=== PATIENT | male | born 1970 | race Caucasian/White ===

== ENCOUNTER 2020-09-20 18:17 | Emergency (ER) | payer OTHER ==
[~2020-09-20] VITALS: Ht 170.2 cm; Wt 81.7 kg
[2020-09-20 19:06] LABS: BASOPHILS 0.7 % (0.0-2.0); HEMOGLOBIN 14.6 gm/dL (14.0-18.0); LYMPHOCYTES 16.8 % (24.0-44.0); MCH 28.2 pg (26.0-34.0); MCHC 33.9 g/dL (28.0-37.0); MCV 83.4 fL (80.0-100.0); MONOCYTES 9.1 % (1.0-8.0); PLATELET COUNT 229 thou/uL (150-400); POLYS 72.4 % (36.0-66.0); RBC 5.16 mil/uL (4.50-6.00); RDW 13.7 % (10.5-14.5); WBC 8.3 thou/uL (4.0-11.0)
[2020-09-20 19:15] LABS: ANION GAP 6 mmol/L (7-16); BUN 16 mg/dL (7-18); CALCIUM 8.7 mg/dL (8.5-10.1); CHLORIDE 103 mmol/L (98-107); CO2 29 mmol/L (21-32); CREATININE 1.2 mg/dL (0.7-1.3); GLUCOSE 93 mg/dL (74-106); POTASSIUM 3.8 mmol/L (3.5-5.1); SODIUM 138 mmol/L (136-145)
[2020-09-20 19:25] LABS: ALBUMIN 3.7 g/dL (3.4-5.0); SGOT 31 U/L (15-37); SGPT 44 U/L (30-65); TOTAL BILIRUBIN 0.4 mg/dL (0.2-1.0); TOTAL PROTEIN 7.5 g/dL (6.4-8.2); TROPONIN-I <0.06 ng/mL (<0.06)
[2020-09-20 20:44] VITALS: BP 149/87
--- NOTE | 2020-09-21 06:56 | EKG ---
[place] [address] [facility] [place] 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
== END 2020-09-20 21:10 ==
LOC: ER 18:17
PROVIDERS: Physician Assistant
DX: R07.9 Chest pain, unspecified (principal); F17.210 Nicotine dependence, cigarettes, uncomplicated

== ENCOUNTER 2021-04-04 20:52 | Emergency (ER) | payer OTHER ==
[~2021-04-04] VITALS: Ht 170.2 cm; Wt 86.2 kg
[2021-04-04 21:03] VITALS: BP 142/99
[2021-04-04] MEDS ORDERED: PROZAC20 MG PO (21:11)
[2021-04-04] MEDS ORDERED: NEURONTIN 300M300 M2 PO (21:11)
[2021-04-05] MEDS ORDERED: TYLOPHEN500 MG PO (22:15)
[2021-04-05] MEDS ORDERED: NYQUIL PO (22:15)
== END 2021-04-04 22:02 | disposition left against medical advice (07) ==
LOC: ER 20:52
DX: U07.1 COVID-19 (principal); R06.00 Dyspnea, unspecified; F17.210 Nicotine dependence, cigarettes, uncomplicated; Z79.899 Other long term (current) drug therapy; Z88.5 Allergy status to narcotic agent

== ENCOUNTER 2021-04-05 22:07 | Inpatient (IN) | payer OTHER ==
[~2021-04-05] VITALS: Ht 170.2 cm; Wt 88.9 kg
[~2021-04-05 22:07] MED LIST: NEURONTIN 300M300 M2 PO; PROZAC20 MG PO
[2021-04-05 22:10] VITALS: BP 158/102
[2021-04-05] MEDS ORDERED: TYLOPHEN500 MG PO (22:15)
[2021-04-05] MEDS ORDERED: NYQUIL PO (22:15)
[2021-04-05 22:54] LABS: HCO3 26.6 mmol/L (22.0-26.0); PCO2 37.5 mmHg (35.0-45.0); pH 7.469 (7.360-7.450); sO2 95.1 % (92.0-98.0)
[2021-04-05 23:18] LABS: BASOPHILS 0.3 % (0.0-2.0); EOSINOPHILS 0.1 % (0.0-3.0); MCH 27.9 pg (26.0-34.0); WBC 4.6 thou/uL (4.0-11.0)
[2021-04-05 23:20] LABS: ABSOLUTE NEUTROPHILS 3.1 thou/uL (1.4-8.2); HEMATOCRIT 45.3 % (42.0-52.0); HEMOGLOBIN 15.3 gm/dL (14.0-18.0); LYMPHOCYTES 24.8 % (24.0-44.0); MCHC 33.8 g/dL (28.0-37.0); MCV 82.6 fL (80.0-100.0); MONOCYTES 6.8 % (1.0-8.0); PLATELET COUNT 157 thou/uL (150-400); RBC 5.49 mil/uL (4.50-6.00); RDW 13.8 % (10.5-14.5)
[2021-04-05 23:21] LABS: CREATININE 1.1 mg/dL (0.7-1.3); POTASSIUM 3.8 mmol/L (3.5-5.1)
[2021-04-05 23:28] LABS: D-DIMER 0.3 ug/mLFEU (0.19-0.50); INR 0.92; PROTIME 10.1 Seconds (10.5-12.1)
[2021-04-05 23:33] LABS: ALBUMIN 2.9 g/dL (3.4-5.0); TOTAL BILIRUBIN 0.4 mg/dL (0.2-1.0); TOTAL PROTEIN 6.9 g/dL (6.4-8.2)
[2021-04-06] VITALS (8 sets, daily range): BP systolic 125–147; BP diastolic 75–97
[2021-04-06 05:00] LABS: HEMATOCRIT 43.1 % (42.0-52.0); HEMOGLOBIN 14.7 gm/dL (14.0-18.0); MCH 28.3 pg (26.0-34.0); MCV 83.1 fL (80.0-100.0); RBC 5.19 mil/uL (4.50-6.00); WBC 3.5 thou/uL (4.0-11.0)
[2021-04-06 05:37] LABS: ALBUMIN 2.7 g/dL (3.4-5.0); CALCIUM 7.9 mg/dL (8.5-10.1); POTASSIUM 4.2 mmol/L (3.5-5.1); TOTAL BILIRUBIN 0.2 mg/dL (0.2-1.0); TOTAL PROTEIN 6.7 g/dL (6.4-8.2)
--- NOTE | 2021-04-06 06:01 | NUR ---
PT ARRIVED VIA CART, PLACED IN ROOM 354. ADMISSION ASSESSMENTS COMPLETED. PT C/O MULTIPLE SX IN RELATION TO COVID DX. PT REPORTED THAT "LAST FRIDAY" HE WENT TO A TESTING FACILITY AND WAS TOLD THAT HE WAS POSITIVE FOR COVID. REPORTEDLY TACHYPNEIC UPON ARRIVAL TO ER. ARRIVED HERE WITH REGULAR RESPIRATORY PATTERN, ABLE TO SPEAK AND ANSWER QUESTIONS WITHOUT ANY OBSERVABLE SOA. ALSO ARRIVED ON O2 AT 2L PER NC. LUNGS DIMINISHED WITH FAINT CRACKLES IN BOTH BASES. SEE CHARTING.
--- NOTE | 2021-04-06 07:35 | EKG ---
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
--- NOTE | 2021-04-06 12:12 | HC ---
[facility] [place] [address] CONSULTATION Name: ELIZABETH LOMELI Room #: 354-P ADM IN M.R.#: [id number] Admission: 04/06/21 Attend Phys: Charles Delgado MD Discharge: Date of : 74 Report #: [id number] THIS REPORT FOR: cc: DORIAN - Susana family physician/PCP DORIAN - No family physician/PCP Xavier Calderon MD ~ DATE OF SERVICE: 04/06/2021 INFECTIOUS DISEASE CONSULTATION ATTENDING PHYSICIAN: Dr. Delgado. REASON FOR EVALUATION: COVID-19 infection, complicated by pneumonitis and respiratory failure. HISTORY OF PRESENT ILLNESS: Chart reviewed and patient examined. This is a 50-year-old gentleman with history of hypertension who have confirmed to be COVID positive several days ago. However, over the course of the last 48 hours prior to his admission had developed progressive dyspnea. He noted early on, had generalized aches and pains. He had some cough, fevers with chills. Denies significant anorexia or poor p.o. intake; however, due to worsening situation, difficulty breathing, he did present to the Emergency Room. On two separate occasions, he left A. The initial second evaluation. Chest x-ray showed bilateral infiltrates consistent with pneumonitis, he was found to be hypoxemic, requiring supplemental oxygen. Initial ABG: pH 7.469, pCO2 of 37.5, pO2 of 70 on room air. Lactic acid is 1.5. Blood cultures are sterile thus far. He was empirically initiated on therapy with azithromycin, ceftriaxone. He was also started on remdesivir, corticosteroids and vitamins. He notes he feels somewhat better since admission. ALLERGIES: LISTED TO CODEINE. CURRENT MEDICATIONS: Include enoxaparin, fluoxetine, cholecalciferol, zinc, ascorbic acid, dexamethasone, remdesivir, azithromycin, ceftriaxone. 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 SOCIAL HISTORY: Does use illicit drugs, specifically marijuana. Former smoker, no ethanol. FAMILY HISTORY: Noncontributory. REVIEW OF SYSTEMS: Otherwise, limited to the above. PHYSICAL EXAMINATION: [facility] [address] [place] [address] CONSULTATION Name: ELIZABETH LOMELI Room #: 354-P [facility] IN M.R.#: [id number] Admission: 04/06/21 Attend Phys: Charles Delgado MD Discharge: Date of : 74 Report #: [id number] GENERAL: Appears somewhat chronically ill. He is alert, cooperative, anxious, mild distress. He is generally lucid. VITAL SIGNS: Temperature 98, pulse 91, respirations 16, blood pressure 129/97. SKIN: Warm, dry, no rashes. HEENT: Normocephalic. Extraocular muscles intact. Nasal cannula in place at 2 liters. NECK: Supple. LUNGS: Had some right basilar crackles. HEART: Regular, we do not appreciate a murmur. ABDOMEN: Somewhat firm, slightly distended, nontender. EXTREMITIES: No cyanosis. GENITOURINARY AND RECTAL: Deferred. LABORATORY DATA: Cultures sterile thus far. Most recent electrolytes, sodium 141, potassium 4.2, chloride 105, bicarbonate 25, anion gap of 11, and creatinine 14 and 1.0, glucose of 196, AST of 51, ALT of 61. Albumin 2.7, total protein of 6.7, estimated GFR of 80. CBC: White count of 3.5, H and H 14.7 and 43.1, platelets of 128. Coronavirus testing was negative. Procalcitonin less than 0.05. ASSESSMENT AND PLAN: COVID-19 infection, complicated by pneumonitis and respiratory failure. We will continue empiric therapy as described as well as directed therapy against coronavirus. He remains somewhat tenuous. Continue to monitor expectantly. <ELECTRONICALLY SIGNED> By: Xavier Calderon MD 04/06/21 1212 [id number] [id number] Xavier Calderon MD /nt
--- NOTE | 2021-04-06 14:18 | NUR ---
INITIAL ASSESSMENT: SW reviewed chart and spoke with nursing and attending physician. Pt was admitted from home due to COVID pneumonia. Pt placed in Enhanced Isolation due to COVID. Pt has not received a COVID vaccine. Pt is afebrile and on 2L of O2. Pt is on IV abx, IV steroids and Remdesivir. No weekend discharge planned. SW placed call to pt's room. No answer. Per chart, pt is alert/orientated and lives at home with family. Pt does not have health insurance. [employer] to screen pt and assist with Medicaid application if appropriate. SW is following to assist as needed with discharge planning.
--- NOTE | 2021-04-06 22:19 | NUR ---
PT RESTING IN BED. O2 PER NC. LUNGS CRACKLES. KENNY SKIN TONE. IVF INTACT. PT REPORTING FATIGUE. HS SNACK PROVIDED.
[2021-04-07 02:50] VITALS: BP 149/101
[2021-04-07 06:48] LABS: ALBUMIN 2.7 g/dL (3.4-5.0); ANION GAP 8 mmol/L (7-16); BUN 16 mg/dL (7-18); CALCIUM 8.2 mg/dL (8.5-10.1); CHLORIDE 109 mmol/L (98-107); CO2 25 mmol/L (21-32); CREATININE 0.9 mg/dL (0.7-1.3); DIRECT BILIRUBIN < 0.1 mg/dL (<0.1-0.2); GLUCOSE 121 mg/dL (74-106); PHOSPHORUS 2.9 mg/dL (2.6-4.7); POTASSIUM 4.3 mmol/L (3.5-5.1); SGOT 45 U/L (15-37); SGPT 58 U/L (16-63); SODIUM 142 mmol/L (136-145); TOTAL BILIRUBIN 0.2 mg/dL (0.2-1.0); TOTAL PROTEIN 6.4 g/dL (6.4-8.2)
[2021-04-07 07:26] VITALS: BP 153/89
[2021-04-07 11:17] VITALS: BP 138/95; BP 150/100
[2021-04-07 15:29] VITALS: BP 134/91
[2021-04-07 19:58] VITALS: BP 148/93
[2021-04-07] MEDS ORDERED: XANAX1 MG PO (20:18)
--- NOTE | 2021-04-07 23:07 | NUR ---
PT RESTING IN BED. LUNGS WHEEZES. PT REQUESTED HOME HS XANAX ORDER, PROVIDER NOTIFIED. REDDENED SKIN TONE.
[2021-04-08 04:18] LABS: ABSOLUTE NEUTROPHILS 6.5 thou/uL (1.4-8.2); BASOPHILS 0.1 % (0.0-2.0); HEMATOCRIT 42.1 % (42.0-52.0); HEMOGLOBIN 14.2 gm/dL (14.0-18.0); MCHC 33.8 g/dL (28.0-37.0); POLYS 76.9 % (36.0-66.0); RBC 5.07 mil/uL (4.50-6.00); RDW 13.8 % (10.5-14.5); WBC 8.4 thou/uL (4.0-11.0)
[2021-04-08 04:23] LABS: PLATELET COUNT 243 thou/uL (150-400)
[2021-04-08 04:49] LABS: ALBUMIN 2.6 g/dL (3.4-5.0); ANION GAP 10 mmol/L (7-16); BUN 19 mg/dL (7-18); CHLORIDE 107 mmol/L (98-107); CO2 26 mmol/L (21-32); CREATININE 0.9 mg/dL (0.7-1.3); DIRECT BILIRUBIN < 0.1 mg/dL (<0.1-0.2); GLUCOSE 108 mg/dL (74-106); PHOSPHORUS 3.6 mg/dL (2.5-4.9); POTASSIUM 3.8 mmol/L (3.5-5.1); SGOT 72 U/L (15-37); SGPT 119 U/L (30-65); SODIUM 143 mmol/L (136-145); TOTAL BILIRUBIN 0.3 mg/dL (0.2-1.0); TOTAL PROTEIN 6.3 g/dL (6.4-8.2)
[2021-04-08 05:40] VITALS: BP 113/71
[2021-04-08 07:29] VITALS: BP 141/99
[2021-04-08] MEDS ORDERED: ACEROLA C500 MG PO (13:08)
[2021-04-08] MEDS ORDERED: VITAMIN D325 MC2 PO (13:08)
[2021-04-08] MEDS ORDERED: PREDNISONE 20 M20 M1 PO (13:08)
[2021-04-08] MEDS ORDERED: MUCINEX600 MG PO (13:08)
[2021-04-08] MEDS ORDERED: CEFUROXIME500 MG PO (13:08)
[2021-04-08] MEDS ORDERED: FELODIPINE 5 MG5 M1 PO (13:08)
[2021-04-08] MEDS ORDERED: ZINC SULFATE50 MG PO (13:08)
[2021-04-08] MEDS ORDERED: ZITHROMAX500 MG PO (13:08)
[2021-04-08 13:38] VITALS: BP 141/99
--- NOTE | 2021-04-08 14:01 | NUR ---
assumed patient care at 0700. a/o x4. on ra. up ad lázaro. vss, dc to home.
== END 2021-04-08 14:02 | disposition home or self-care (01) | DRG 871 ==
LOC: ER 22:07 → EROBS 04-06 00:27 → 3W 04-06 02:37
PROVIDERS: Emergency Medicine; Hospitalist; Nurse Practitioner Family; ADMIT Internal Medicine; ATTEND Internal Medicine
PROC: XW033H5 Introduction of Tocilizumab into Peripheral Vein, Percutaneous Approach, New Technology Group 5 (ICD-10-PCS; principal; 2021-04-06)
PROC: XW033E5 Introduction of Remdesivir Anti-infective into Peripheral Vein, Percutaneous Approach, New Technology Group 5 (ICD-10-PCS; principal; 2021-04-06)
DX: A41.89 Other specified sepsis (principal); U07.1 COVID-19; J96.01 Acute respiratory failure with hypoxia; G92 Toxic encephalopathy; J12.82 Pneumonia due to coronavirus disease 2019; J15.9 Unspecified bacterial pneumonia; R73.9 Hyperglycemia, unspecified; I10 Essential (primary) hypertension; F41.1 Generalized anxiety disorder; F32.9 Major depressive disorder, single episode, unspecified; Z86.011 Personal history of benign neoplasm of the brain; Z79.899 Other long term (current) drug therapy; Z88.5 Allergy status to narcotic agent; Z87.891 Personal history of nicotine dependence
CPT/HCPCS: 10879